=== PATIENT | male | born 1985 | race Two or more races ===

== ENCOUNTER 2022-08-09 19:48 | Emergency (ER) | payer BC, SELFPAY ==
[2022-08-09 19:51] VITALS: BP 150/90; PULSE 92; RESP 16; TEMP 36.4; O2SAT 100; BMI 24.3
--- NOTE | 2022-08-09 20:50 | EX.ED.DYSGE1 ---
HPI History of Present Illness Chief Complaint: Flank Pain Narrative Narrative: 37-year-old male presenting with left rib pain. Patient states this started about an hour and a half ago. Patient states that he has not taken anything for pain. He is not dyspneic. He has not had sweating lightheadedness, diaphoresis. He denies chest pressure. He states the pain starts in his left lateral ribs and radiates up to the left shoulder. Patient denies any trauma. Patient does state that he is generally fairly active. He started doing elliptical 3 days ago. He does not know if this could have exacerbated it. No fevers, chills, cough. No cardiac history or history of DVT/PE. No risk factors for DVT/PE. PFSH PFSH Medical History no medical history Home Medications lidocaine 5 % topical patch (Lidoderm) 1 patch topical DAILY PRN pain #15 ea 08/09/22 [Rx Last Taken Unknown] Allergy/AdvReac Type Severity Reaction Status Date / Time No Known Allergies Allergy Verified 08/09/22 19:52 Social History Smoking Status: Never smoker ROS ROS ED Review of Systems ROS Unobtainable: Denies due to encephalopathy Constitutional Constitutional ED: Denies chills or fever(s) Eyes Eyes: Denies change in vision or diplopia ENT ENT ED: Denies rhinorrhea or sore throat Cardiovascular Cardiovascular: Reports other Details: Left rib pain Respiratory/Chest Respiratory/Chest: Denies cough or dyspnea Gastrointestinal Gastrointestinal: Denies abdominal pain, nausea or vomiting Genitourinary Genitourinary ED: Denies dysuria or hematuria Musculoskeletal Musculoskeletal: Denies arthralgias or back pain Integumentary Denies abscess or Abrasions Neurologic Neurologic: Denies headache(s) or paresthesias Psychiatric Psychiatric: Denies anxiety or depression EXAM Physical Exam Const Vital Signs: 08/09/22 19:51 Temperature 97.6 F L Temperature Source Temporal Pulse Rate 92 Respiratory Rate 16 Blood Pressure 150/90 H Blood Pressure Mean 110 Pulse Ox 100 Oxygen Delivery Method Room Air Positive well nourished General Appearance ED: NAD; Negative for pallor HEENT Reports moist mucous membranes Negative for trauma Eyes PERRL and EOMs intact bilaterally Chest Wall Chest Narrative: Tenderness to palpation anterior axillary line in the lower ribs. No crepitance, deformity, bruising. Equal symmetric breath sounds and chest wall rise. Resp normal respiratory effort and clear to auscultation bilaterally Cardio regular rate and regular rhythm GI normal to inspection, nondistended, normoactive bowel sounds Neuro oriented x3 and CN's II-XII intact bilaterally Sensorium / Orientation: alert Motor Exam: strength 5/5 throughout Psych mental status grossly normal Skin General Skin Exam: Negative for jaundice or pallor MDM MDM MDM Narrative Medical decision making narrative: 37-year-old male presenting with nontraumatic left-sided rib pain in the ribs in the midaxillary line in the anterior axillary line radiating to the axillary region. Equal symmetric breath sounds or chest wall rise. No crepitance, deformity, bruising. Low suspicion for ACS given his symptoms. He does not have any history of cardiac disease. He is PERC negative. Patient tried nothing for pain prior to coming in he is given ibuprofen 6 or milligrams, Lidoderm patch. I will get a left rib series. Most likely source is him recently starting doing elliptical. Left rib series on my interpretation shows no acute rib fractures or abnormalities. No acute cardiopulmonary process. Patient feeling improved with medication. He is counseled on findings. He is to alternate Tylenol ibuprofen at home. I will give him some Lidoderm patch as well. Patient stable for discharge. Impression: 1. Left rib strain Lab Data Attestation: I reviewed the patient's lab results. Radiography Diagnostic Testing: Clinical Impression(s) from Imaging Studies Ribs w/Chest X-Ray 08/09/22 21:00 IMPRESSION: RIBS: Normal x-ray examination of the ribs. CHEST: Normal x-ray examination of the chest. Electronically Signed: Joe Goldstein MD at 21:25 EDT , Discharge Plan Triage Chief Complaint: Flank Pain ED Provider: Epifanio Wu Dx/Rx/DC Orders Instructions: ED Chest Wall Strain Prescriptions: New lidocaine [Lidoderm] 5 % adhesive patch,medicated 1 patch topical DAILY PRN (Reason: pain) Qty: 15 0RF Rx Instructions: leave on most painful area for up to 12 hrs Primary Care Provider: Artur Tellez Referrals: Artur Tellez MD [Primary Care Provider] - Disposition Disposition: Home, Self Care
[2022-08-09] MEDS: Ibuprofen 600 MG Tablet PO (20:56)
[2022-08-09] MEDS: Lidocaine 5% Patch 1 PATCH TOPICAL (20:57)
--- NOTE | 2022-08-09 21:00 | RAD_ITS ---
STUDY: X-RAY - UNILATERAL RIBS ( LEFT ) WITH CHEST REASON FOR EXAM: Male, 37 years old. rib pain TECHNIQUE - RIBS: 4 view(s) of the ribs. TECHNIQUE - CHEST: Single PA view of the chest. COMPARISON: None. FINDINGS - RIBS: Normal visualized ribs without a demonstrated fracture. FINDINGS - CHEST: The lungs are clear and expanded. There is no demonstrated pleural abnormality. Normal size heart. Normal mediastinum and hossein. Normal visualized pulmonary arteries. Normal visualized aortic arch and descending thoracic aorta. Normal visualized thoracic spine. Normal visualized ribs, clavicles, and shoulders. There is no demonstrated abnormality of the visualized soft tissue structures of the upper abdomen. RAD/Ribs Uni Min 3V w/PA Chest IMPRESSION: RIBS: Normal x-ray examination of the ribs. CHEST: Normal x-ray examination of the chest. Electronically Signed: Joe Goldstein MD at 21:25 EDT ,
== END 2022-08-09 22:33 | disposition home or self-care (01) ==
PROVIDERS: Emergency Provider Student in an Organized Health Care Education/Training Program; PCP Family Medicine; Visit Provider Student in an Organized Health Care Education/Training Program
DX: S29.011A Strain of muscle and tendon of front wall of thorax, initial encounter (principal); R10.9 Unspecified abdominal pain; R07.81 Pleurodynia; X58.XXXA Exposure to other specified factors, initial encounter
CPT/HCPCS: 71101; 99284; A4216